=== PATIENT | male | born 1940 | race Caucasian/White ===

== ENCOUNTER 2020-06-23 13:28 | Inpatient (IN) | payer MEDICARE, BC ==
[~2020-06-23] VITALS: Ht 177.8 cm; Wt 77.6 kg
--- NOTE | 2020-06-23 13:28 | NUR ---
BIB [facility] FROM HOME, NEAR [facility] WHILE SITTING IN THE TOILET, TO ER BED 9, HOOKED TO MONITOR, CHANGED TO HOSP GOWN, WARM BLANKET PROVIDED, PATIENT APPEARS DROWSY. AWAITING MD BEST.
--- NOTE | 2020-06-23 13:31 | NUR ---
DR CALDERON AT BEDSIDE
--- NOTE | 2020-06-23 13:46 | NUR ---
BOTTLE CASER AT BEDSIDE
[2020-06-23] MEDS ORDERED: IV NS 0.9% 1,000 ML BAG IV ONE ×2 (14:00→15:00)
[2020-06-23 14:03] LABS: BASOPHILS # (AUTO) 0.1 /CMM (0.0-0.2); BASOPHILS % (AUTO) 0.6 % (0.0-2.0); HEMATOCRIT 34 % (39-51); HEMOGLOBIN 11.2 g/dL (13.5-17.5); LYMPHOCYTES # (AUTO) 0.3 /CMM (0.8-4.8); LYMPHOCYTES % (AUTO) 2.2 % (20.0-44.0); MEAN CORPUSCULAR HGB CONC 33 g/dl (31.0-36.0); MEAN CORPUSCULAR VOLUME 102 fL (80-96); MONOCYTES % (AUTO) 7.6 % (2.0-12.0); NEUTROPHILS # (AUTO) 12.1 /CMM (1.8-8.9); NEUTROPHILS % (AUTO) 89.6 % (43.0-81.0); PLATELET COUNT (AUTO) 247 /CMM (150-450); RED BLOOD CELL COUNT(AUTO) 3.29 MIL/uL (4.5-6.0); WHITE BLOOD COUNT (AUTO) 13.5 K/uL (4.3-11.0)
--- NOTE | 2020-06-23 14:10 | NUR ---
FAMILY ANJALI LEFT CONTACT # [phone]
[2020-06-23 14:11] LABS: CALCIUM, SERUM 9.8 mg/dL (8.5-10.1); CREATININE 0.7 mg/dL (0.6-1.3); POTASSIUM 3.7 mmol/L (3.5-5.1)
[2020-06-23 14:17] LABS: ALBUMIN 2.6 g/dL (3.4-5.0); BILIRUBIN,DIRECT 0.4 mg/dL (0.0-0.2); BILIRUBIN,TOTAL 1.9 mg/dL (0.2-1.0); TOTAL PROTEIN, SERUM 6.2 g/dL (6.4-8.2)
[2020-06-23] MEDS ORDERED: OMEP20CA15 PO (14:54)
[2020-06-23] MEDS ORDERED: HYDR-3980 MT (14:54)
[2020-06-23] MEDS ORDERED: FLUT16SP BNOSTRILS (14:54)
[2020-06-23] MEDS ORDERED: TEMA15CA PO (14:54)
[2020-06-23] MEDS ORDERED: SERT50TA12 PO (14:54)
[2020-06-23] MEDS ORDERED: POTA-10 PO (14:54)
[2020-06-23] MEDS ORDERED: NALOXONE HCL 0.4 MG/ML AMPUL IV ONE ×2 (15:00)
[2020-06-23] MEDS ORDERED: NALOXONE PREFILLED SYRINGE 2 MG/2 ML SYRINGE ONE (15:53)
--- NOTE | 2020-06-23 16:08 | NUR ---
PATIENT STILL NOTED ALTERED AFTER GIVING NARCAN. MADE AWARE
--- NOTE | 2020-06-23 16:16 | NUR ---
CALLED [facility] PAGED DARIUSZ PATRICK
[2020-06-23 16:42] LABS: SERUM AMMONIA 12 umol/L (11-32)
[2020-06-23 16:44] LABS: ACETAMINOPHEN 1 ug/ml (10-30); ALCOHOL, BLOOD < 3 mg/dL (0-0)
[2020-06-23 16:47] LABS: SALICYLATE < 2.8 mg/dL (2.8-20.0)
[2020-06-23 16:55] LABS: THYROID STIMULATING HORMONE 1.339 uIU/mL (0.358-3.74)
--- NOTE | 2020-06-23 16:55 | NUR ---
MALINDA TATE (SON) [phone]
[2020-06-23] MEDS ORDERED: ATOR20TA PO (17:00)
[2020-06-23] MEDS ORDERED: COLE1TAB2 PO (17:00)
[2020-06-23] MEDS ORDERED: CHOL200013 PO (17:00)
[2020-06-23] MEDS ORDERED: DIPH1TAB PO (17:00)
[2020-06-23] MEDS ORDERED: CYCL10TA9 PO (17:00)
[2020-06-23] MEDS ORDERED: VANCOMYCIN HCL 1.25 GM in IV D5W 260 ML IV ONE (17:00)
[2020-06-23] MEDS ORDERED: CEFEPIME 1 GM in IV D5W 50 ML IV ONE (17:00)
--- NOTE | 2020-06-23 17:08 | NUR ---
SPOKE TO MALINDA ABOUT PATIENTS ALLERGIES.
--- NOTE | 2020-06-23 17:12 | NUR ---
NOT ABLE TO GET ORTHOSTATIC VITAL SIGNS. AWARE
[2020-06-23 17:40] LABS: APPEARANCE,URINE Clear (CLEAR); BILIRUBIN,URINE SMALL (NEGATIVE); BLOOD, URINE Small Ery/uL (NEGATIVE); COLOR,URINE Yellow (YELLOW); KETONES,URINE 15 (NEGATIVE); LEUKOCYTE ESTERASE ,URINE Trace (NEGATIVE); NITRITE, URINE Positive (NEGATIVE); PH,URINE 5.5 (5.0-8.0); PROTEIN,URINE Negative (NEGATIVE); UGLUCOSE Negative (NEGATIVE); UROBILINOGEN,URINE 0.2 EU/dL (0.2)
--- NOTE | 2020-06-23 17:49 | NUR ---
US TECH AT BEDSIDE
[2020-06-23] MEDS ORDERED: Z GUARD REMEDY 2 OZ OINT TP PRN (18:00)
[2020-06-23] MEDS ORDERED: MAG HYDROX/AL HYDROX/SIMETH 30 ML UDC PO PRN (18:00)
[2020-06-23] MEDS ORDERED: ONDANSETRON HCL/PF 4 MG/2 ML VIAL IVP PRN (18:00)
[2020-06-23] MEDS ORDERED: MAGNESIUM HYDROXIDE 30 ML UDC PO PRN (18:00)
--- NOTE | 2020-06-23 18:03 | NUR ---
RAPID COVID SWAB DONE AND SENT TO LAB
[2020-06-23 18:19] LABS: BACTERIA,URINE Moderate /HPF (None Seen)
[2020-06-23 18:20] LABS: SQUAMOUS EPITHELIAL CELL,UR Few /HPF (None Seen); URINE AMORPHOUS URATE Moderate /HPF (None Seen)
--- NOTE | 2020-06-23 18:45 | NUR ---
INFORMED HOUSE SUP OF COVID RESULT
--- NOTE | 2020-06-23 18:46 | NUR ---
AWAITING CALL FROM [facility] FOR BED
--- NOTE | 2020-06-23 19:14 | NUR ---
REPORT GIOVEN TO SHANNAN GARCIA FOR ELBA Addendum: 06/23/20 at 1915 by [facility] REPORT GIVEN TO SHANNAN GARCIA FOR ELBA
--- NOTE | 2020-06-23 19:17 | NUR ---
PATIENT IS AAOX3. DOES NOT REMEMBER WHAT THE YEAR IT IS. PATIENT IS ABLE TO VERIFY NAME, DATE, AND PRESIDENT. BREATHING EVENLY AND UNLABORED ON ROOM AIR. CONNECTED TO MONITOR.
--- NOTE | 2020-06-23 19:56 | NUR ---
REPORT GIVEN TO FELIPE GARCIA FOR ELBA.
[2020-06-23 20:00] VITALS: BP 124/54
--- NOTE | 2020-06-23 20:00 | NUR ---
MS/TELE/RN RECEIVED PATIENT FROM [facility] BY BED. PATIENT WAS SLEEPY, APPEAR COMFORTABLE, NO SIGNS OF DISTRESS NOTED, MADE COMFORTABLE IN BED, UNABLE TO DO ADMISSION ASSESSMENT PATIENT IS VERY SLEEPY AND IS NOT ANSWERING TO QUESTIONS, PHYSICAL ASSESSMENT WAS DONE, CLEANED AND MADE DRY, REPOSITIONED TO COMFORT. WILL MONITOR.
--- NOTE | 2020-06-23 20:12 | NUR ---
TAKEN PATIENT UP TO ASSIGNED ROOM.
[2020-06-23] MEDS ORDERED: CEFTRIAXONE 1 G VIAL ONE (22:59)
[2020-06-23] MEDS: CEFTRIAXONE 2 G in IV D5W 100 ML IV SCH (23:05)
[2020-06-23] MEDS: IV NS 0.9% 1,000 ML IV PRN (23:06)
[2020-06-24] VITALS: BP 112/55
[2020-06-24 04:00] VITALS: BP 120/54
[2020-06-24 06:28] LABS: BASOPHILS % (AUTO) 0.2 % (0.0-2.0); EOSINOPHILS % (AUTO) 2.8 % (0.0-6.0); HEMATOCRIT 30 % (39-51); HEMOGLOBIN 10.1 g/dL (13.5-17.5); LYMPHOCYTES # (AUTO) 0.8 /CMM (0.8-4.8); LYMPHOCYTES % (AUTO) 9.8 % (20.0-44.0); MEAN CORPUSCULAR HGB CONC 34 g/dl (31.0-36.0); MEAN CORPUSCULAR VOLUME 102 fL (80-96); MONOCYTES # (AUTO) 0.8 /CMM (0.1-1.30); MONOCYTES % (AUTO) 8.9 % (2.0-12.0); NEUTROPHILS # (AUTO) 6.8 /CMM (1.8-8.9); NEUTROPHILS % (AUTO) 78.3 % (43.0-81.0); PLATELET COUNT (AUTO) 228 /CMM (150-450); RED BLOOD CELL COUNT(AUTO) 2.97 MIL/uL (4.5-6.0); WHITE BLOOD COUNT (AUTO) 8.7 K/uL (4.3-11.0)
--- NOTE | 2020-06-24 06:45 | NUR ---
MS/TELE/RN PATIENT IS AWAKE, COMFORTABLE, NO SIGNS OF DISTRESS NOTED, CALL LIGHT IN REACH. ALL NEEDS ATTENDED AT THIS TIME, WILL CONTINUE TO MONITOR.
[2020-06-24 06:52] LABS: ALANINE AMINOTRANSFERASE 38 U/L (12-78); ALBUMIN 2.1 g/dL (3.4-5.0); ALKALINE PHOSPHATASE 65 U/L (46-116); ASPARTATE AMINOTRANSFERASE 53 U/L (15-37); BILIRUBIN,DIRECT 0.3 mg/dL (0.0-0.2); BILIRUBIN,TOTAL 0.8 mg/dL (0.2-1.0); CALCIUM, SERUM 8.6 mg/dL (8.5-10.1); CARBON DIOXIDE 25 mmol/L (21-32); CHLORIDE 111 mmol/L (98-107); CREATININE 0.5 mg/dL (0.6-1.3); GLUCOSE 87 mg/dL (74-106); MAGNESIUM 1.9 mg/dL (1.8-2.4); PHOSPHORUS 3.6 mg/dL (2.5-4.9); POTASSIUM 3.1 mmol/L (3.5-5.1); SODIUM SERUM 145 mmol/L (136-145); TOTAL PROTEIN, SERUM 4.9 g/dL (6.4-8.2); UREA NITROGEN, BLOOD 16 mg/dL (7-18)
[2020-06-24 06:56] LABS: CHOLESTEROL 113 mg/dL (<200); HDL CHOLESTEROL 37 mg/dL (40-60); LDL 59 mg/dL (0-99); THYROID STIMULATING HORMONE 2.069 uIU/mL (0.358-3.74); TRIGLYCERIDES 92 mg/dL (30-150)
[2020-06-24] MEDS: PANTOPRAZOLE 40 MG TABLET.DR PO SCH (07:30)
--- NOTE | 2020-06-24 07:30 | NUR ---
RN Opening Received patient in bed, awake and oriented x2-3, able to responds all stimuli. Denies pain or distress, respiratory even and unlabored on room air. Skin is warm to touch, keep clean/dry. Keep bed in locked with elevated HOB and lower position of the bed for ensure airway, and aspiration precaution. Call light within reach, will continue to monitor.
[2020-06-24 08:00] VITALS: BP 108/66
[2020-06-24] MEDS ORDERED: [UNRECOGNIZED DRUG - OTHER] PO SCH (09:00)
[2020-06-24] MEDS: CHOLECALCIFEROL 1,000 UNIT TABLET (VIT D3) PO SCH (09:00)
[2020-06-24] MEDS: FLUTICASONE PROPIONATE 16 GM BOTTLE NS SCH (09:23)
[2020-06-24] MEDS: ENOXAPARIN SODIUM 40 MG/0.4 ML DISP.SYRIN SQ SCH (09:25)
[2020-06-24] MEDS: POTASSIUM CL. PREMIX PERIPHER. 50 ML IV SCH ×5 (10:34→14:07)
[2020-06-24] MEDS: SERTRALINE HCL 50 MG TABLET PO SCH (10:50)
[2020-06-24 12:00] VITALS: BP_SYST 114; BP_SYST 124; BP_SYST 86; BP_DIAS 50; BP_DIAS 62; BP_DIAS 64
--- NOTE | 2020-06-24 13:48 | NUR ---
Patient unable to participate PT eval due to back sx, will clarify MD.
[2020-06-24 16:00] VITALS: BP 112/58
--- NOTE | 2020-06-24 18:51 | NUR ---
RN Closing note Patient in bed, does no c/o pain or distress, respiratory even and unlabored on room air O2sat 96%. Skin is warm to touch kept clean/dry, intact IV fluid running 75ml/hr NS, no s/s of over fluid observed. Keep bed in locked with elevated HOB for ensure airway and elevated HOB. Call light within reach, will endorse senior estimator.
--- NOTE | 2020-06-24 19:42 | NUR ---
TELEGRAPH LINEMAN OPENING NOTES RECEIVED PATIENT RESTING IN BED COMFORTABLY; A/OX2-3, BREATHING EVEN AND UNLABORED; TOLERATING ROOM AIR WELL; NO SOB NOTED; R HAND # 18 INFUSING NS AT 75ML/HR, TOLERATING WELL; SAFETY PRECAUTIONS IMPLEMENTED; BED LOCKED IN LOW POSITION; SIDE RAILSX2; CALL LIGHT WITHIN REACH; WILL CONT TO MONITOR
[2020-06-24 20:00] VITALS: BP 106/60
[2020-06-24] MEDS: CEFTRIAXONE 2 G in IV D5W 100 ML IV SCH (20:42)
[2020-06-25] VITALS (7 sets, daily range): BP systolic 113–135; BP diastolic 60–77
[2020-06-25] MEDS: IV NS 0.9% 1,000 ML IV PRN (02:35)
[2020-06-25 06:24] LABS: BASOPHILS % (AUTO) 0.2 % (0.0-2.0); EOSINOPHILS % (AUTO) 4.2 % (0.0-6.0); HEMATOCRIT 27 % (39-51); HEMOGLOBIN 9.2 g/dL (13.5-17.5); LYMPHOCYTES # (AUTO) 0.9 /CMM (0.8-4.8); MEAN CORPUSCULAR HGB CONC 34 g/dl (31.0-36.0); MEAN CORPUSCULAR VOLUME 102 fL (80-96); MONOCYTES # (AUTO) 0.6 /CMM (0.1-1.30); MONOCYTES % (AUTO) 9.5 % (2.0-12.0); NEUTROPHILS # (AUTO) 4.8 /CMM (1.8-8.9); NEUTROPHILS % (AUTO) 72.1 % (43.0-81.0); PLATELET COUNT (AUTO) 249 /CMM (150-450); RED BLOOD CELL COUNT(AUTO) 2.68 MIL/uL (4.5-6.0); WHITE BLOOD COUNT (AUTO) 6.7 K/uL (4.3-11.0)
[2020-06-25 06:27] LABS: CALCIUM, SERUM 8.2 mg/dL (8.5-10.1); CARBON DIOXIDE 27 mmol/L (21-32); CHLORIDE 108 mmol/L (98-107); CREATININE 0.5 mg/dL (0.6-1.3); GLUCOSE 106 mg/dL (74-106); POTASSIUM 3.2 mmol/L (3.5-5.1); SODIUM SERUM 140 mmol/L (136-145); UREA NITROGEN, BLOOD 13 mg/dL (7-18)
--- NOTE | 2020-06-25 06:52 | NUR ---
FINANCIAL REPORTING DIRECTOR CLOSING NOTES PATIENT RESTING IN BED COMFORTABLY; PATIENT VERBALIZED FEELING WELL RESTED; A/OX2-3; TELE MONITOR ATTACHED, READS 80BPM; R HAND # 18 INFUSING NS @ 75ML/HR; PATIENT TOLERATING IVF WELL; NO S/S OF REDNESS OR INFILTRATION NOTED; ALL NEEDS RENDERED; PATIENT ABLE TO MAKE NEEDS KNOWN; SAFETY PRECAUTIONS IMPLEMENTED; BED LOCKED IN LOW POSITION; SIDE RAILSX2; CALL LIGHT WITHIN REACH; WILL ENDORSE ELBA TO ONCOMING NURSE
[2020-06-25] MEDS: PANTOPRAZOLE 40 MG TABLET.DR PO SCH (07:52)
--- NOTE | 2020-06-25 08:21 | NUR ---
WOUND CARE CONSULT: PT PRESENTS WITH LARGE AREAS OF BRUISING/DISCOLORATION TO LOWER BACK, SACRAL AREA, LEFT WAIST, HIP AND THIGH, RASH TO GROIN FOLDS AND PERINEUM AND STERI STRIPS TO LEFT SIDE AND LOWER BACK, ALL PRESENT ON ADMISSION. NO DRAINAGE, ERYTHEMA OR TENDERNESS NOTED AT SURGICAL SITES. STERI STRIPS ARE DRY AND INTACT. PT STATES HAD SURGERY AT [facility] LAST WEEK BY DR LUCIUS JOHNSON. PT TO FOLLOW UP WITH HIS NEUROSURGEON AFTER DISCHARGE. RECOMMENDATIONS MADE FOR SKIN PROTECTION AND FOR RASH. DISCUSSED WITH NURSING STAFF. PT IS CONTINENT AT THIS TIME. WILL SEE PRN. MARROQUIN IN AGREEMENT WITH PLAN OF CARE.
[2020-06-25] MEDS: SERTRALINE HCL 50 MG TABLET PO SCH (09:00)
[2020-06-25] MEDS ORDERED: POTASSIUM CL. PREMIX PERIPHER. 50 ML IV SCH (09:23)
[2020-06-25] MEDS: CHOLECALCIFEROL 1,000 UNIT TABLET (VIT D3) PO SCH (09:33)
[2020-06-25] MEDS: FLUTICASONE PROPIONATE 16 GM BOTTLE NS SCH (09:33)
[2020-06-25] MEDS: CLOTRIMAZOLE 1% 15 GM TUBE TP SCH ×2 (09:33→16:32)
[2020-06-25] MEDS: ENOXAPARIN SODIUM 40 MG/0.4 ML DISP.SYRIN SQ SCH (09:34)
[2020-06-25] MEDS ORDERED: POTASSIUM CHLORIDE 20 MEQ TAB.PRT.SR PO ONE (11:00)
--- NOTE | 2020-06-25 14:27 | NUR ---
10:30am Patients son Quan [phone] contacted this SW via phone and was inquiring about durable power of trust and estates attorney for healthcare for his father. Son reported that this patient is currently at [facility] with an altered mental status. Son Quan also informed this SW that mother is also elderly with periods of confusion. This SW informed him that she would verify steps to take with her landscaping supervisor and would call back. Quan thanked this SW and asked if he could be emailed resources instead as he was at work. Quan provided his email for resources ( [email or web address]).
--- NOTE | 2020-06-25 14:29 | NUR ---
11:30 am. This SW emailed patients son attorneys in the area who deal with power of immigration attorney . This SW also informed Quan via email that [facility] does not endorse these law firms. This SW informed Quan that there were local attorneys that could provide him with more information and educated him on how to access these. Resources provided by this health social work professor included [employer], [address] [place] [address] ) ; [employer], [address], [address] [place] [address] ([phone] ); [employer]
[2020-06-25] MEDS: SOD FERRIC GLUC 125 MG in IV NS 0.9% 100 ML IV SCH (14:55)
--- NOTE | 2020-06-25 15:20 | NUR ---
met with patient and son Elie [phone], discussed dc planning options. Family 1st option is short term COVID free SNF, lifestyle book/list provided to family to explore,2nd option is dc home with homehealth. Might need a walker when dc. Addendum: 06/25/20 at 2043 by JUAN DIEGO ARMENDARIZ RN Amended: Links added.
[2020-06-25] MEDS ORDERED: CEFTRIAXONE 1 G in IV D5W 50 ML IV SCH (18:30)
[2020-06-25] MEDS ORDERED: LEVOFLOXACIN (500MG) 500 MG TABLET PO SCH (18:30)
--- NOTE | 2020-06-25 18:42 | NUR ---
RN Closing note Patient in bed, watching TV comfortably, remains AO x 2-3, denies pain or distress, skin is warm to touch, keep clean/dry, intact new IV site. Respiratory even and unlabored on room air. Keep bed in locked with elevated HOB for ensure airway and aspiration precaution. Call light within reach, will endorse egg producer.
--- NOTE | 2020-06-25 19:12 | NUR ---
MS RN: RECEIVED PATIENT Patient in bed, awake. On room air, denies shortness of breath. Mid lower back with steri strips, no bleeding, denies pain. Fall precaution maintained.
[2020-06-25] MEDS: CEFEPIME 1 GM in IV D5W 50 ML IV SCH (21:03)
--- NOTE | 2020-06-26 01:28 | NUR ---
CONFUSED Bed alarm sounds, Patient appears confused, wants to go home. Trying to get up from bed unassisted. Reorient with long period of time, insisting he's going home to take his medication. Denies pain, no c/o shortness of breath. Fall precaution maintained. Will cont to monitor.
--- NOTE | 2020-06-26 06:19 | NUR ---
MS RN: END OF SHIFT REPORT Patient is A/O x2 with confusion, impulsive getting out from bed unassisted. Frequent reorientation needed. IVF antibiotic as scheduled, afebrile overnight. Plan continue antibiotic x 7 more days for UTI per ID. Will endorse to oncoming RN.
[2020-06-26 07:23] LABS: BASOPHILS % (AUTO) 0.3 % (0.0-2.0); CALCIUM, SERUM 8.8 mg/dL (8.5-10.1); CREATININE 0.6 mg/dL (0.6-1.3); EOSINOPHILS % (AUTO) 1.3 % (0.0-6.0); HEMATOCRIT 31 % (39-51); HEMOGLOBIN 10.5 g/dL (13.5-17.5); LYMPHOCYTES # (AUTO) 1.1 /CMM (0.8-4.8); LYMPHOCYTES % (AUTO) 12.7 % (20.0-44.0); MAGNESIUM 1.8 mg/dL (1.8-2.4); MEAN CORPUSCULAR HGB CONC 33 g/dl (31.0-36.0); MEAN CORPUSCULAR VOLUME 101 fL (80-96); MONOCYTES # (AUTO) 0.6 /CMM (0.1-1.30); MONOCYTES % (AUTO) 7.2 % (2.0-12.0); NEUTROPHILS % (AUTO) 78.5 % (43.0-81.0); PHOSPHORUS 2.6 mg/dL (2.5-4.9); PLATELET COUNT (AUTO) 293 /CMM (150-450); POTASSIUM 3.6 mmol/L (3.5-5.1); RED BLOOD CELL COUNT(AUTO) 3.11 MIL/uL (4.5-6.0); WHITE BLOOD COUNT (AUTO) 8.9 K/uL (4.3-11.0)
[2020-06-26 08:00] VITALS: BP 119/52
[2020-06-26] MEDS: CHOLECALCIFEROL 1,000 UNIT TABLET (VIT D3) PO SCH (08:36)
[2020-06-26] MEDS: SERTRALINE HCL 50 MG TABLET PO SCH (08:36)
[2020-06-26] MEDS: PANTOPRAZOLE 40 MG TABLET.DR PO SCH (08:37)
[2020-06-26] MEDS: ENOXAPARIN SODIUM 40 MG/0.4 ML DISP.SYRIN SQ SCH (08:37)
[2020-06-26] MEDS: FLUTICASONE PROPIONATE 16 GM BOTTLE NS SCH (08:39)
[2020-06-26] MEDS: CEFEPIME 1 GM in IV D5W 50 ML IV SCH ×2 (08:39→21:11)
[2020-06-26] MEDS: CLOTRIMAZOLE 1% 15 GM TUBE TP SCH ×2 (08:39→16:10)
--- NOTE | 2020-06-26 09:28 | NUR ---
rn notes patient received on room air, no sob noted, a/o x2 at this time. 1;1 sitter present. LFA 22 with no IVF. bed at the lowest setting, call light within reach, side rails up x2
[2020-06-26] MEDS: SOD FERRIC GLUC 125 MG in IV NS 0.9% 100 ML IV SCH (14:43)
[2020-06-26] MEDS ORDERED: QUETIAPINE FUMARATE 25 MG TABLET PO PRN (15:30)
[2020-06-26 16:00] VITALS: BP 129/69
--- NOTE | 2020-06-26 17:26 | NUR ---
rn notes patient remains on room air, no sob noted, a/o x2 at this time. 1;1 sitter present. LFA 22 with no IVF. bed at the lowest setting, call light within reach, side rails up x2. Plan is to give seroquel tonight PRN and maybe DC tomorrow to an ARU.
--- NOTE | 2020-06-26 19:38 | NUR ---
MS RN PT A/O X 2, CONFUSED, 1:1 SITTER AT BEDSIDE, TOLERATING ROOM AIR, WATCHING TV, STABLE AND NOT IN DISTRESS, SAFETY MEASURES IN PLACE. WILL CONT TO MONITOR.
[2020-06-26 20:05] VITALS: BP 113/63
--- NOTE | 2020-06-27 06:03 | NUR ---
MS RN ASLEEP AND EASILY AWAKEN, MONITORED ACCORDINGLY, TOLERATING ROOM AIR 98% SLEPT WELL 9 HOURS. PT CALM, KEPT CLEAN, DRY AND COMFORTABLE. NOT IN DISTRESS, AM CARE RENDERED, OFFLOAD HEELS AND ELBOWS AT ALL TIMES. SAFETY MEASURES AT ALL TIMES. WILL ENDORSE TO NEXT SHIFT.
[2020-06-27 06:25] LABS: BASOPHILS % (AUTO) 0.3 % (0.0-2.0); EOSINOPHILS % (AUTO) 3.3 % (0.0-6.0); HEMATOCRIT 28 % (39-51); HEMOGLOBIN 9.5 g/dL (13.5-17.5); LYMPHOCYTES # (AUTO) 0.8 /CMM (0.8-4.8); LYMPHOCYTES % (AUTO) 12.1 % (20.0-44.0); MEAN CORPUSCULAR HGB CONC 34 g/dl (31.0-36.0); MEAN CORPUSCULAR VOLUME 101 fL (80-96); MONOCYTES # (AUTO) 0.6 /CMM (0.1-1.30); MONOCYTES % (AUTO) 9.5 % (2.0-12.0); NEUTROPHILS # (AUTO) 4.8 /CMM (1.8-8.9); NEUTROPHILS % (AUTO) 74.8 % (43.0-81.0); PLATELET COUNT (AUTO) 272 /CMM (150-450); RED BLOOD CELL COUNT(AUTO) 2.79 MIL/uL (4.5-6.0); WHITE BLOOD COUNT (AUTO) 6.4 K/uL (4.3-11.0)
[2020-06-27 06:53] LABS: CALCIUM, SERUM 8.8 mg/dL (8.5-10.1); CREATININE 0.6 mg/dL (0.6-1.3); MAGNESIUM 1.7 mg/dL (1.8-2.4); PHOSPHORUS 3.1 mg/dL (2.5-4.9); POTASSIUM 3.4 mmol/L (3.5-5.1)
[2020-06-27] MEDS: PANTOPRAZOLE 40 MG TABLET.DR PO SCH (07:42)
[2020-06-27 08:00] VITALS: BP 111/57
--- NOTE | 2020-06-27 08:00 | NUR ---
MS/RN OPENING NOTES RECEIVED PATENT ON BED ALERT ORIENTED X2. PATENT DENIES PAIN AT THIS TIME. NO APPARENT RESPIRATORY DISTRESS NOTED. BED IN LOWEST POSITION AND LOCKED. WILL CONTINUE TO MONITOR.
[2020-06-27] MEDS: CHOLECALCIFEROL 1,000 UNIT TABLET (VIT D3) PO SCH (08:19)
[2020-06-27] MEDS: SERTRALINE HCL 50 MG TABLET PO SCH (08:19)
[2020-06-27] MEDS: ENOXAPARIN SODIUM 40 MG/0.4 ML DISP.SYRIN SQ SCH (08:21)
[2020-06-27] MEDS: CEFEPIME 1 GM in IV D5W 50 ML IV SCH (08:25)
[2020-06-27] MEDS: FLUTICASONE PROPIONATE 16 GM BOTTLE NS SCH (08:25)
[2020-06-27] MEDS: CLOTRIMAZOLE 1% 15 GM TUBE TP SCH ×2 (08:33→17:51)
[2020-06-27] MEDS ORDERED: POTASSIUM CHLORIDE 20 MEQ TAB.PRT.SR PO SCH (10:30)
[2020-06-27] MEDS: Magnesium 1GM/D5W 100ML PREMIX 100 ML IV SCH ×2 (10:31→11:45)
[2020-06-27] MEDS ORDERED: MEROPENEM 500 MG in IV NS 0.9% 50 ML IV SCH ×2 (13:00→16:00)
[2020-06-27] MEDS ORDERED: MERO500V21 IV (14:23)
[2020-06-27] MEDS ORDERED: QUET25TA PO (14:23)
[2020-06-27] MEDS ORDERED: ENOX40DI SQ (14:23)
[2020-06-27] MEDS: SOD FERRIC GLUC 125 MG in IV NS 0.9% 100 ML IV SCH (14:38)
[2020-06-27 16:00] VITALS: BP 108/64
--- NOTE | 2020-06-27 19:24 | NUR ---
MS/RN CLOSING NOTES PATIENT IS ON BED. ALERT AND ORIENTED X2. PATIENT DENIES PAIN AT THIS TIME. PATIENT IN NO APPARENT RESPIRATORY DISTRESS NOTED. SEEN AND EXAMINED BY MD WITH ORDERS MADE AND CARRIED OUT ALL DUE MEDICATION WAS GIVEN. SAFETY PRECAUTION IN PLACED. BED IN LOWEST POSITION AND LOCKED SIDE RAILS UP X2. CALL LIGHT WITHIN REACH. PATIENT IS FOR DISCHARGE. DISCHARGE FORMS ARE READY AND ATTACH TO CHART. WILL ENDORSED TO SHELLFISH SHUCKER.
--- NOTE | 2020-06-27 19:30 | NUR ---
MS RN OPENING NOTE PATIENT IS SITTING ON THE EDGE OF THE BED. A/OX2, PLEASANTLY CONFUSED. TOLERATING ROOM AIR. RESPIRATIONS ARE EVEN AND UNLABORED. NO S/S SOB NOTED. NO C/O PAIN AT THIS TIME. IV ACCESS IN LFA#22 PATENT AND SALINE LOCKED, INFORMED PATIENT WILL REMOVED WHEN AMBULANCE COMES FOR SINGING TEACHER. BED IS LOW AND LOCKED, HOB ELEVATED IN SEMI FOWLERS, SIDE RAILS UP X2. CALL LIGHT WITHIN REACH. WILL CONTINUE TO MONITOR.
--- NOTE | 2020-06-27 19:50 | NUR ---
MS TRACK LEADER NOTE [facility] PATIENT IS A/OX2, PLEASANTLY CONFUSED. SITTING ON EDGE OF BED. IN STABLE CONDITION. VITAL SIGNS STABLE. GAVE REPORT TO GOLD MINER BLASTING. REMOVED IV ACCESS FROM LFA. WENT OVER EXIT CARE WITH PATIENT. REMOVED ID BAND. BELONGINGS LIST AND PHOTOS HAVE BEEN COMPLETED BY DAY RN. DAY RN ALSO GAVE REPORT TO FACILITY. PATIENT TRANSFERED TO STRETCHER WITH BELONGINGS.
== END 2020-06-27 19:50 | DRG 871 ==
LOC: ER 13:36 → TELE 19:48 → MED 06-25 12:07
PROVIDERS: ADMIT Nurse Practitioner Acute Care; ATTEND Nurse Practitioner Acute Care
DX: A41.9 Sepsis, unspecified organism (principal); G93.41 Metabolic encephalopathy; N39.0 Urinary tract infection, site not specified; F05 Delirium due to known physiological condition; E86.0 Dehydration; Z98.890 Other specified postprocedural states; Z88.6 Allergy status to analgesic agent; Z88.5 Allergy status to narcotic agent; Z88.8 Allergy status to other drugs, medicaments and biological substances; Z79.899 Other long term (current) drug therapy; E87.6 Hypokalemia; D53.9 Nutritional anemia, unspecified; K76.0 Fatty (change of) liver, not elsewhere classified; I67.2 Cerebral atherosclerosis; Z74.09 Other reduced mobility; B96.5 Pseudomonas (aeruginosa) (mallei) (pseudomallei) as the cause of diseases classified elsewhere
CPT/HCPCS: 36415; 70450-TC; 71045-TC; 76700-TC; 80048-TC; 80061-TC; 80076-TC; 80305; 81000-TC; 82140-TC; 82728-TC; 83540-TC; 83605-TC; 83735-TC; 83880; 84100-TC; 84439-TC; 84443-TC; 84484-TC; 85025-TC; 85730-TC; 87040-TC; 87081-TC; 87086-TC; 87186-TC; 93307-TC; 97116-TC; 97530-TC; C9803-CS; G0378; G0480; J0692; J0696; J1650; J2185; J2310; J2916; J3475; J3480; J7030; J7060

== ENCOUNTER 2021-12-14 13:54 | Inpatient (IN) | payer MEDICARE, BC ==
[~2021-12-14] VITALS: Ht 177.8 cm; Wt 81.2 kg
[~2021-12-14 13:54] MED LIST: ATOR20TA PO; CHOL200013 PO; COLE1TAB2 PO; ENOX40DI SQ; FLUT16SP BNOSTRILS; MERO500V21 IV; OMEP20CA15 PO; QUET25TA PO; SERT50TA12 PO
[2021-12-14] MEDS ORDERED: TDAP [DIPH/PERTUSSIS/TET] 0.5 ML VIAL IM ONE ×2 (15:00→15:09)
[2021-12-14] MEDS ORDERED: ONDANSETRON HCL/PF 4 MG/2 ML VIAL IVP ONE (15:00)
[2021-12-14] MEDS ORDERED: ONDANSETRON HCL/PF 4 MG/2 ML VIAL ONE ×2 (15:08→22:08)
[2021-12-14] MEDS ORDERED: MORPHINE SULFATE INJ 4 MG/ML DISP.SYRIN ONE ×2 (15:40→22:08)
[2021-12-14] MEDS ORDERED: LIDOCAINE 1%-EPI 1:100,000 20 ML VIAL ONE (15:40)
[2021-12-14] MEDS ORDERED: LIDOCAINE 1%-EPI 1:100,000 20 ML VIAL TP ONE (16:00)
[2021-12-14] MEDS ORDERED: MORPHINE SULFATE INJ 2 MG/ML DISP.SYRIN IV ONE (16:00)
[2021-12-14 16:08] LABS: BASOPHILS % (AUTO) 0.3 % (0.0-2.0); EOSINOPHILS % (AUTO) 0.7 % (0.0-6.0); HEMATOCRIT 44 % (39-51); HEMOGLOBIN 14.4 g/dL (13.5-17.5); LYMPHOCYTES % (AUTO) 14.6 % (20.0-44.0); MEAN CORPUSCULAR HGB CONC 33 g/dl (31.0-36.0); MEAN CORPUSCULAR VOLUME 98 fL (80-96); MONOCYTES # (AUTO) 0.5 K/uL (0.1-1.30); MONOCYTES % (AUTO) 7.2 % (2.0-12.0); NEUTROPHILS # (AUTO) 5.2 K/uL (1.8-8.9); NEUTROPHILS % (AUTO) 77.2 % (43.0-81.0); PLATELET COUNT (AUTO) 182 K/uL (150-450); RED BLOOD CELL COUNT(AUTO) 4.48 MIL/uL (4.5-6.0); WHITE BLOOD COUNT (AUTO) 6.7 K/uL (4.3-11.0)
[2021-12-14 16:33] LABS: CALCIUM, SERUM 9.8 mg/dL (8.5-10.1); CARBON DIOXIDE 28 mmol/L (21-32); CHLORIDE 105 mmol/L (98-107); CREATININE 0.8 mg/dL (0.6-1.3); GLUCOSE 94 mg/dL (74-106); POTASSIUM 4.1 mmol/L (3.5-5.1); SODIUM SERUM 140 mmol/L (136-145); UREA NITROGEN, BLOOD 16 mg/dL (7-18)
[2021-12-14 17:09] LABS: ALANINE AMINOTRANSFERASE 14 U/L (12-78); ALBUMIN 3.7 g/dL (3.4-5.0); ALKALINE PHOSPHATASE 120 U/L (46-116); ASPARTATE AMINOTRANSFERASE 17 U/L (15-37); BILIRUBIN,DIRECT 0.2 mg/dL (0.0-0.2); BILIRUBIN,TOTAL 0.7 mg/dL (0.2-1.0); TOTAL PROTEIN, SERUM 6.8 g/dL (6.4-8.2)
[2021-12-14] MEDS ORDERED: MELA5TAB PO (17:26)
[2021-12-14] MEDS ORDERED: GABA-532 PO ×2 (17:26)
[2021-12-14] MEDS ORDERED: MEMA10TA PO (17:26)
[2021-12-14] MEDS ORDERED: Z GUARD REMEDY 4 OZ OINT TP PRN (17:30)
[2021-12-14] MEDS ORDERED: MAG HYDROX/AL HYDROX/SIMETH 30 ML UDC PO PRN (17:30)
[2021-12-14] MEDS ORDERED: ONDANSETRON HCL/PF 4 MG/2 ML VIAL IVP PRN (17:30)
[2021-12-14] MEDS ORDERED: ACETAMINOPHEN 325 MG TABLET PO PRN (17:30)
[2021-12-14] MEDS ORDERED: MAGNESIUM HYDROXIDE 30 ML UDC PO PRN (17:30)
[2021-12-14] MEDS ORDERED: ZOLPIDEM TARTRATE 5 MG TABLET PO PRN (17:30)
[2021-12-14] MEDS ORDERED: HYDROMORPHONE 1 MG/1 ML DISP.SYRIN IV ONE (18:00)
[2021-12-14] MEDS ORDERED: ENOXAPARIN SODIUM 40 MG/0.4 ML DISP.SYRIN SQ ONE (18:20)
[2021-12-14] MEDS ORDERED: HYDROMORPHONE 1 MG/1 ML DISP.SYRIN ONE (18:20)
[2021-12-14] MEDS: ENOXAPARIN SODIUM 40 MG/0.4 ML DISP.SYRIN SQ SCH (18:38)
[2021-12-14] MEDS: MORPHINE SULFATE INJ 2 MG/ML DISP.SYRIN IV PRN (22:11)
[2021-12-14 23:00] VITALS: BP 137/93
[2021-12-15] VITALS: BP 144/56
[2021-12-15 00:11] VITALS: BP 144/56
[2021-12-15 04:00] VITALS: BP 119/60
[2021-12-15] MEDS: MORPHINE SULFATE INJ 2 MG/ML DISP.SYRIN IV PRN (05:52)
[2021-12-15 08:00] VITALS: BP 125/76
[2021-12-15 08:23] LABS: BASOPHILS % (AUTO) 0.3 % (0.0-2.0); EOSINOPHILS % (AUTO) 0.4 % (0.0-6.0); HEMATOCRIT 42 % (39-51); HEMOGLOBIN 13.9 g/dL (13.5-17.5); LYMPHOCYTES # (AUTO) 0.8 K/uL (0.8-4.8); LYMPHOCYTES % (AUTO) 15.1 % (20.0-44.0); MEAN CORPUSCULAR HGB CONC 33 g/dl (31.0-36.0); MEAN CORPUSCULAR VOLUME 98 fL (80-96); MONOCYTES # (AUTO) 0.4 K/uL (0.1-1.30); MONOCYTES % (AUTO) 7.8 % (2.0-12.0); NEUTROPHILS # (AUTO) 3.9 K/uL (1.8-8.9); NEUTROPHILS % (AUTO) 76.4 % (43.0-81.0); PLATELET COUNT (AUTO) 162 K/uL (150-450); RED BLOOD CELL COUNT(AUTO) 4.33 MIL/uL (4.5-6.0); WHITE BLOOD COUNT (AUTO) 5.1 K/uL (4.3-11.0)
[2021-12-15 08:41] LABS: ALBUMIN 3.3 g/dL (3.4-5.0); BILIRUBIN,TOTAL 2.4 mg/dL (0.2-1.0); CALCIUM, SERUM 8.5 mg/dL (8.5-10.1); CREATININE 0.7 mg/dL (0.6-1.3); MAGNESIUM 2.1 mg/dL (1.8-2.4); PHOSPHORUS 3.5 mg/dL (2.5-4.9); POTASSIUM 4.6 mmol/L (3.5-5.1)
[2021-12-15] MEDS ORDERED: Medication Not On Formulary EA (Memantine Hcl (Namenda) 10 MG) PO SCH (09:00)
[2021-12-15] MEDS: SERTRALINE HCL 50 MG TABLET PO SCH (09:04)
[2021-12-15] MEDS: MEMANTINE HCL 5 MG TABLET PO SCH ×2 (09:04→17:36)
[2021-12-15] MEDS: PANTOPRAZOLE 40 MG TABLET.DR PO SCH (09:04)
[2021-12-15 16:00] VITALS: BP 134/85
[2021-12-15] MEDS: ENOXAPARIN SODIUM 40 MG/0.4 ML DISP.SYRIN SQ SCH (17:36)
[2021-12-15] MEDS: METOPROLOL TARTRATE 25 MG TABLET PO SCH ×2 (18:00→20:53)
[2021-12-15 20:00] VITALS: BP 115/60
[2021-12-16] MEDS: MORPHINE SULFATE INJ 2 MG/ML DISP.SYRIN IV PRN ×2 (03:03→22:21)
[2021-12-16 05:00] VITALS: BP 146/74
[2021-12-16 07:21] LABS: BASOPHILS % (AUTO) 0.2 % (0.0-2.0); EOSINOPHILS % (AUTO) 1.7 % (0.0-6.0); HEMATOCRIT 42 % (39-51); HEMOGLOBIN 13.9 g/dL (13.5-17.5); MEAN CORPUSCULAR HGB CONC 33 g/dl (31.0-36.0); MEAN CORPUSCULAR VOLUME 98 fL (80-96); MONOCYTES # (AUTO) 0.5 K/uL (0.1-1.30); MONOCYTES % (AUTO) 9.3 % (2.0-12.0); NEUTROPHILS % (AUTO) 70.8 % (43.0-81.0); PLATELET COUNT (AUTO) 167 K/uL (150-450); RED BLOOD CELL COUNT(AUTO) 4.25 MIL/uL (4.5-6.0); WHITE BLOOD COUNT (AUTO) 5.6 K/uL (4.3-11.0)
[2021-12-16 07:38] LABS: ALBUMIN 3.2 g/dL (3.4-5.0); BILIRUBIN,TOTAL 0.8 mg/dL (0.2-1.0); CREATININE 0.8 mg/dL (0.6-1.3); MAGNESIUM 2.1 mg/dL (1.8-2.4); PHOSPHORUS 3.2 mg/dL (2.5-4.9); POTASSIUM 3.9 mmol/L (3.5-5.1); TOTAL PROTEIN, SERUM 6.2 g/dL (6.4-8.2)
[2021-12-16 07:49] LABS: CALCIUM, SERUM 8.9 mg/dL (8.5-10.1)
[2021-12-16 08:00] VITALS: BP 130/70
[2021-12-16] MEDS: SERTRALINE HCL 50 MG TABLET PO SCH (08:42)
[2021-12-16] MEDS: PANTOPRAZOLE 40 MG TABLET.DR PO SCH (08:43)
[2021-12-16] MEDS: METOPROLOL TARTRATE 25 MG TABLET PO SCH ×2 (08:43→21:59)
[2021-12-16] MEDS: MEMANTINE HCL 5 MG TABLET PO SCH ×2 (08:43→17:26)
[2021-12-16] MEDS ORDERED: IOHEXOL-300 100 ML VIAL IV ONE (11:22)
[2021-12-16] MEDS ORDERED: IV NS 0.9% 250 ML IV ONE (11:23)
[2021-12-16 16:00] VITALS: BP 133/84
[2021-12-16] MEDS: ENOXAPARIN SODIUM 40 MG/0.4 ML DISP.SYRIN SQ SCH (17:37)
[2021-12-16 20:00] VITALS: BP 131/77
[2021-12-17] VITALS: BP 114/58
[2021-12-17 04:00] VITALS: BP 115/66
[2021-12-17 06:59] LABS: BASOPHILS % (AUTO) 0.2 % (0.0-2.0); EOSINOPHILS % (AUTO) 1.3 % (0.0-6.0); HEMATOCRIT 44 % (39-51); HEMOGLOBIN 14.9 g/dL (13.5-17.5); LYMPHOCYTES # (AUTO) 1.5 K/uL (0.8-4.8); LYMPHOCYTES % (AUTO) 21.1 % (20.0-44.0); MEAN CORPUSCULAR HGB CONC 34 g/dl (31.0-36.0); MEAN CORPUSCULAR VOLUME 98 fL (80-96); MONOCYTES # (AUTO) 0.7 K/uL (0.1-1.30); MONOCYTES % (AUTO) 9.4 % (2.0-12.0); NEUTROPHILS # (AUTO) 4.8 K/uL (1.8-8.9); PLATELET COUNT (AUTO) 192 K/uL (150-450); RED BLOOD CELL COUNT(AUTO) 4.49 MIL/uL (4.5-6.0)
[2021-12-17 07:14] LABS: ALBUMIN 3.9 g/dL (3.4-5.0); BILIRUBIN,TOTAL 0.9 mg/dL (0.2-1.0); CALCIUM, SERUM 9.4 mg/dL (8.5-10.1); CREATININE 0.9 mg/dL (0.6-1.3); MAGNESIUM 2.2 mg/dL (1.8-2.4); PHOSPHORUS 3.7 mg/dL (2.5-4.9); POTASSIUM 3.9 mmol/L (3.5-5.1); TOTAL PROTEIN, SERUM 7.7 g/dL (6.4-8.2)
[2021-12-17] MEDS: PANTOPRAZOLE 40 MG TABLET.DR PO SCH (07:42)
[2021-12-17 08:00] VITALS: BP 105/57
[2021-12-17] MEDS: METOPROLOL TARTRATE 25 MG TABLET PO SCH ×2 (09:00→21:54)
[2021-12-17] MEDS: SERTRALINE HCL 50 MG TABLET PO SCH (09:50)
[2021-12-17] MEDS: MEMANTINE HCL 5 MG TABLET PO SCH ×2 (09:51→16:53)
[2021-12-17 12:00] VITALS: BP 104/61
[2021-12-17] MEDS: MORPHINE SULFATE INJ 2 MG/ML DISP.SYRIN IV PRN ×2 (15:08→22:40)
[2021-12-17 16:00] VITALS: BP 122/58
[2021-12-17] MEDS: ENOXAPARIN SODIUM 40 MG/0.4 ML DISP.SYRIN SQ SCH (16:54)
[2021-12-17 20:00] VITALS: BP 118/61
[2021-12-18] VITALS: BP 112/60
[2021-12-18 04:00] VITALS: BP 126/83
[2021-12-18] MEDS: PANTOPRAZOLE 40 MG TABLET.DR PO SCH (06:39)
[2021-12-18] MEDS: SERTRALINE HCL 50 MG TABLET PO SCH (08:18)
[2021-12-18] MEDS: MEMANTINE HCL 5 MG TABLET PO SCH ×2 (08:18→16:45)
[2021-12-18] MEDS: METOPROLOL TARTRATE 25 MG TABLET PO SCH ×2 (08:18→21:52)
[2021-12-18] MEDS: MORPHINE SULFATE INJ 2 MG/ML DISP.SYRIN IV PRN ×2 (08:45→22:02)
[2021-12-18] MEDS: ENOXAPARIN SODIUM 40 MG/0.4 ML DISP.SYRIN SQ SCH (17:10)
[2021-12-18 20:00] VITALS: BP 122/69
[2021-12-19 04:00] VITALS: BP 143/71
[2021-12-19 08:00] VITALS: BP 136/77
[2021-12-19] MEDS: PANTOPRAZOLE 40 MG TABLET.DR PO SCH (08:21)
[2021-12-19] MEDS: SERTRALINE HCL 50 MG TABLET PO SCH (08:21)
[2021-12-19] MEDS: MEMANTINE HCL 5 MG TABLET PO SCH ×2 (08:22→17:29)
[2021-12-19] MEDS: METOPROLOL TARTRATE 25 MG TABLET PO SCH (08:23)
[2021-12-19] MEDS: MORPHINE SULFATE INJ 2 MG/ML DISP.SYRIN IV PRN (10:20)
[2021-12-19 12:00] VITALS: BP 122/80
[2021-12-19] MEDS ORDERED: LIDOCAINE 1% INJ 50 ML MDV IJ ONE (13:30)
[2021-12-19 16:00] VITALS: BP 109/53
[2021-12-19] MEDS ORDERED: METO25TA20 PO (17:28)
[2021-12-19] MEDS ORDERED: Z Guard Remedy TP (17:28)
[2021-12-19] MEDS: ENOXAPARIN SODIUM 40 MG/0.4 ML DISP.SYRIN SQ SCH (17:30)
== END 2021-12-19 19:00 | DRG 552 ==
LOC: ER 13:59 → TRANSITION 18:39 → TELE 22:20 → MED 12-19 16:59
PROVIDERS: ADMIT Hospitalist; ATTEND Nurse Practitioner Acute Care
PROC: 0HQ1XZZ Repair Face Skin, External Approach (ICD-10-PCS; principal; 2021-12-14)
DX: S12.110A Anterior displaced Type II dens fracture, initial encounter for closed fracture (principal); E44.1 Mild protein-calorie malnutrition; D68.59 Other primary thrombophilia; I50.32 Chronic diastolic (congestive) heart failure; S02.2XXA Fracture of nasal bones, initial encounter for closed fracture; W01.198A Fall on same level from slipping, tripping and stumbling with subsequent striking against other object, initial encounter; Y92.481 Parking lot as the place of occurrence of the external cause; I48.91 Unspecified atrial fibrillation; F03.90 Unspecified dementia, unspecified severity, without behavioral disturbance, psychotic disturbance, mood disturbance, and anxiety; K21.9 Gastro-esophageal reflux disease without esophagitis; Z20.822 Contact with and (suspected) exposure to COVID-19; E88.09 Other disorders of plasma-protein metabolism, not elsewhere classified; I11.0 Hypertensive heart disease with heart failure; Z90.49 Acquired absence of other specified parts of digestive tract; R74.01 Elevation of levels of liver transaminase levels; R60.0 Localized edema; S00.81XA Abrasion of other part of head, initial encounter; E80.6 Other disorders of bilirubin metabolism; Z87.440 Personal history of urinary (tract) infections; S00.83XA Contusion of other part of head, initial encounter; Z68.25 Body mass index [BMI] 25.0-25.9, adult
CPT/HCPCS: 36415; 70450-TC; 70486-TC; 71045-TC; 72125-TC; 72141-TC; 80048-TC; 80053-TC; 80061-TC; 80076-TC; 82550-TC; 83735-TC; 83880; 84100-TC; 84484-TC; 85025-TC; 85652-TC; 86140-TC; 87081-TC; 90715; 93307-TC; 93970-TC; 97116-TC; 97530-TC; A4217; A6403; C9803; G0378; J1170; J1650; J2270; J2405; J3490; J7050; L0172; Q9967